=== PATIENT | male | born 1945 | race Caucasian/White ===

== ENCOUNTER 2017-10-08 12:59 | Emergency (ER) | payer MEDICARE, OTHER ==
[2017-10-08 13:15] VITALS: BP 141/88
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
--- NOTE | 2017-10-08 13:56 | CR ---
Left shoulder: Three views of the left shoulder were obtained. Comparison: No prior shoulder exam. Acromioclavicular joint shows mild joint space narrowing with mild inferior and superior spurring. Deformity from old healed clavicle fracture is seen. Glenohumeral joint appears within normal limits. No acute fracture or dislocation is seen. Impression: 1. Mild degenerative change within the acromioclavicular joint as noted above. 2. Old healed left clavicle fracture. Diagnostic code #2
== END 2017-10-08 14:04 | disposition home or self-care (01) ==
LOC: JD.ED 12:59
DX: M75.112 Incomplete rotator cuff tear or rupture of left shoulder, not specified as traumatic (principal); I10 Essential (primary) hypertension; E78.00 Pure hypercholesterolemia, unspecified; E11.9 Type 2 diabetes mellitus without complications; Z88.5 Allergy status to narcotic agent; Z88.8 Allergy status to other drugs, medicaments and biological substances; Z79.82 Long term (current) use of aspirin; Z79.899 Other long term (current) drug therapy
CPT/HCPCS: 73030-26-LT; 73030-LT; 99284

== ENCOUNTER 2020-01-21 11:06 | Emergency (ER) | payer MEDICARE, OTHER ==
[2020-01-21 11:24] VITALS: BP 171/80; PULSE 58
--- NOTE | 2020-01-21 11:31 | EDM.PDOC ---
ED HPI GENERAL MEDICAL PROBLEM - General Chief Complaint: Back Pain or Injury Stated Complaint: BACK PAIN Time Seen by Provider: 01/21/20 11:10 Source of Information: Reports: Patient History Limitations: Reports: No Limitations - History of Present Illness INITIAL COMMENTS - FREE TEXT/NARRATIVE: 74-year-old male presents to the ED for evaluation of injuries sustained from a fall 4 days ago at about 9:30 in the morning. He reports he was in [place] helping out a friend cutting down some trees on his on the top of a 12 foot ladder. The tree branch she was cutting on came back struck the ladder knocking it out from underneath his feet and he fell directly to the ground landing hard on his back. It certainly knocked the wind out of him. He states he was transiently confused as well as patients or other people indicated that he seemed to have trouble remembering things for period of time since that time he states he has been sharp as attack and drove himself back to [place] here. He is having increased pain in his lower thoracic spine particular at the thoracolumbar junction and throughout the lumbar spine. He states he can walk okay but he is walking slower than normal. He states he has no trouble getting in and out of the vehicle. Has to do it much slower than normal. He states he is in otherwise good health. Complaining of some rib pain throughout the mid and lower back posteriorly. It does hurt in his back when he takes a deep breath or coughs. Denies coughing up any blood. Denies any cervical neck pain. Onset: Sudden Onset Date: 01/17/20 Onset Time: 09:30 Duration: Day(s):, Getting Worse Location: Reports: Chest (Your ribs bilaterally), Back (Mid and lower back) Quality: Reports: Ache, Other (Pain is worse with certain movements such as bending forwards and coughing radiculopathy.) Severity: Moderate Improves with: Reports: Rest Worsens with: Reports: Movement Context: Denies: Activity (Getting out of the car is difficult and he walks much slower than normal due to back stiffness and soreness.), Exercise, Lifting , Sick Contact Associated Symptoms: Reports: No Other Symptoms, Chest Pain. Denies: Confusion , Cough, cough w sputum, Diaphoresis, Fever/Chills (To take a deep breath in his back at times), Headaches, Loss of Appetite, Malaise, Nausea/Vomiting, Rash , Seizure, Shortness of Breath, Syncope, Weakness Treatments CONTACT LENS ASSISTANT: Reports: Acetaminophen Lower Back Pain Score (Numeric/FACES): 8 - Related Data Allergies Allergy/AdvReac Type Severity Reaction Status Date / Time codeine Allergy Cannot Verified 01/21/20 11:35 Remember linagliptin Allergy Cannot Verified 01/21/20 11:35 Remember metformin Allergy Cannot Verified 01/21/20 11:35 Remember Home Meds: Home Meds Aspirin [Halfprin] 81 mg PO DAILY 08/06/15 [History] atorvaSTATin [Lipitor] 40 mg PO DAILY 08/06/15 [History] glipiZIDE [Glipizide] 20 mg PO DAILY 08/06/15 [History] Metoprolol Succinate 50 mg PO DAILY 10/08/17 [History] oxyCODONE HCl/Acetaminophen [Percocet 5-325 mg Tablet] 1 - 2 each PO Q4H PRN # 20 tablet 10/08/17 [Rx] Melatonin 1 tab PO BEDTIME 01/21/20 [History] oxyCODONE HCl/Acetaminophen [Percocet 5-325 mg Tablet] 1 - 2 each PO Q4H PRN # 20 tablet 01/21/20 [Rx] polyethylene glycoL 3350 [MiraLAX] 17 gm PO DAILY #1 canister 01/21/20 [Rx] Past Medical History Cardiovascular History: Reports: High Cholesterol, Hypertension Musculoskeletal History: Reports: Osteoarthritis (Mostly affecting his knees.) Endocrine/Metabolic History: Reports: Diabetes, Type II (Controlled with glipizide and diet.) - Past Surgical History Neurological Surgical History: Reports: Lumbar Spine Other Neurological Surgeries/Procedures: removed spur Musculoskeletal Surgical History: Reports: Knee Replacement, Shoulder Replacement Social & Family History - Caffeine Use Caffeine Use: Reports: Coffee - Living Situation & Occupation Living situation: Reports: with Family Occupation: Other ED ROS GENERAL - Review of Systems Review Of Systems: See Below Constitutional: Reports: Decreased Appetite. Denies: Fever, Chills, Malaise, Weakness, Fatigue, Weight Loss HEENT: Reports: Glasses Respiratory: Reports: Shortness of Breath. Denies: Wheezing, Pleuritic Chest Pain (Objective shortness of breath is deep breathing makes the back pain worse. ) Cardiovascular: Reports: No Symptoms Endocrine: Reports: Fatigue GI/Abdominal: Reports: Decreased Appetite. Denies: Abdominal Pain, Anorexia, Black Stool, Bloody Stool, Constipation, Diarrhea, Difficulty Swallowing, Distension, Flatus, Hematemesis, Hematochezia (Mildly decreased), Melena, Mucous in Stool, Stool Incontinence, Vomiting, Other : Reports: Frequency, Other (Curiously x2 or 3 on BPH) Musculoskeletal: Reports: Back Pain (Pain low back pain at times but much worse since falling 5 days ago), Joint Pain (His hips neck at times) Skin: Reports: No Symptoms ( or less at the thoracolumbar junction) Neurological: Reports: Other. Denies: Numbness, Paresthesia, Tingling Psychiatric: Reports: No Symptoms (Radiculopathy) Hematologic/Lymphatic: Reports: No Symptoms Immunologic: Reports: No Symptoms ED EXAM,LOWER BACK PAIN/INJURY - Physical Exam Exam: See Below Exam Limited By: No Limitations General Appearance: Alert, WD/WN, Mild Distress, Other (Very stoic fellow. Temperature is 36.5 heart rate was 58 in sinus respiratory is 20 BP 171/80 Socks is 98% on room air) Eye Exam: Bilateral Eye: Normal Inspection Throat/Mouth: Normal Inspection, Normal Lips, Normal Oropharynx, Other Head: Atraumatic (Dental or tongue injury.), Normocephalic, Other Neck: Normal Inspection, Supple, Non-Tender, Full Range of Motion, Other. No: Limited Range of Motion, Lymphadenopathy (L), Lymphadenopathy (R), Tender Lateral, Tender Midline, Thyromegaly Respiratory/Chest: No Respiratory Distress, Lungs Clear, Normal Breath Sounds, No Accessory Muscle Use, Other (Pain on firm compression of his ribs) Cardiovascular: Normal Peripheral Pulses, Regular Rate, Rhythm, No Edema, No Gallop, No Murmur ( or sternum.), No Rub GI/Abdominal: Normal Bowel Sounds, Soft, Non-Tender, No Organomegaly, No Mass, Pelvis Stable Back Exam: Decreased Range of Motion, Vertebral Tenderness. No: Full Range of Motion, CVA Tenderness (L), CVA Tenderness (R) Extremities: Normal Inspection, Normal Range of Motion, Non-Tender, Other (Is no evidence of contusions abrasions or limited mobility of his shoulders clavicles) Neurological: Alert, Normal Mood/Affect ( upper extremities or lower extremities. He can walk fine), Normal Dorsiflexion, CN II-XII Intact, Normal Plantar Flexion, Normal Gait, Other (Walks slowly with a slightly wide-based gait.) DTR - Lower Extremities: 1+: Ankle (R), Ankle (L), 2+: Knee (R), Knee (L) Psychiatric: Normal Affect, Normal Mood Skin Exam: Warm, Dry, Intact, Normal Color, No Rash Course - Vital Signs Last Recorded V/S: Last Vital Signs Temp 36.5 C 01/21/20 11:15 Pulse 58 L 01/21/20 11:15 Resp 20 01/21/20 11:15 BP 171/80 H 01/21/20 11:15 Pulse Ox 98 01/21/20 11:15 - Radiology Interpretation Free Text/Narrative:: 74-year-old male presents to the ED with complaints of mid back pain. This occurred secondary to a fall from a height of about 11 feet when he was up on a ladder cutting tree branches in [place] last Sunday, January 16. He states he fell flat on his back and knocked the wind out of him. He states he did not hit his head but was transiently confused until he got his breath back. Did drive himself back to [place] or to [place] 2 days ago. He is having increased back pain particular at the thoracolumbar junction area and is able to walk although he states he is walking much more slowly than normal and getting in and out of his vehicle much more slowly than normal. Examination reveals pain mostly in the lower thoracic and upper lumbar spine at the thoracolumbar junction. He had some pain also in his lower ribs particularly 8 9 and 10 adjacent to the spine. Therefore CT of the chest, CT thoracic spine CT lumbar spine will be done. Clinically has no other injuries. - Re-Assessments/Exams Free Text/Narrative Re-Assessment/Exam: 01/21/20 13:32 CT of the thoracic spine reveals slight anterior wedging of thoracic #4. No definite acute fracture line is evident. Moderately anterior wedging of T7 is also seen without definite acute fracture line. There is a compression deformity at T12 which shows evidence for a fracture line which is therefore acute. There is approximately 30% loss of the vertebral body height. No extension of the posterior elements is seen. Degenerative changes scattered throughout the apophyseal joints of the thoracic spine. No abnormal subluxation is seen. No bony central canal stenosis or bony neuroforaminal stenosis is noted. Scattered endplate spurring is noted. CT lumbar spine reveals disc space narrowing noted at L1-L2 with vacuum phenomena. Minimal disc space narrowing at L2-L3 and L3-L4 levels as well. Slight spinal listhesis by several millimeters L4-L5 due to severe degenerative apophyseal change. Lesser degenerative apophyseal changes seen throughout the other lumbar levels. No acute fractures seen within the lumbar spine. Degenerative changes noted within both SI joints. CT of the chest reveals mediastinum showing atherosclerotic change within the thoracic aorta and branch vessels. Mild coronary artery calcification is seen no mediastinal hematoma is seen no axillary adenopathy is seen no pericardial fluid is seen. Lungs show no pulmonary contusion. No acute parenchymal process is seen within either lung. No pleural effusions are seen. Previous right shoulder surgery is appreciated old healed right-sided rib fractures are noted. No acute rib fracture is identified with any degree of certainty. Several compression deformities are seen in the thoracic spine as mentioned in the CT of the thoracic spine. Discussed the findings with the patient. Of note he is a candidate for kyphoplasty and we discussed what seizure is all about. He shows some interest in this. 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 He is going to discuss the options with his family members and then get back with Dr. Carson about arranging consultation with Dr. Mason if this is his decision. Departure - Departure Time of Disposition: 13:02 Disposition: Home, Self-Care 01 Condition: Fair Clinical Impression: Vertebral compression fracture Qualifiers: Encounter type: initial encounter Thoracic vertebra fracture level: T2 - Discharge Information *PRESCRIPTION DRUG MONITORING PROGRAM REVIEWED*: Not Applicable *COPY OF PRESCRIPTION DRUG MONITORING REPORT IN PATIENT RASHAUN: Not Applicable Prescriptions: oxyCODONE HCl/Acetaminophen [Percocet 5-325 mg Tablet] 1 - 2 each PO Q4H PRN # 20 tablet PRN Reason: pain relief. polyethylene glycoL 3350 [MiraLAX] 17 gm PO DAILY #1 canister Instructions: Thoracic Spine Fracture, [id number] Referrals: Rusty Doyle [[employer] Deployment Consultant] - Forms: ED Department Discharge Additional Instructions: Evaluation in the emergency room today in regards to injuries to your mid and lower back sustained from a fall from a height of about 11 feet while cutting tree branches while in [place] last Sunday. Increasing pain particularly in the mid lower back at the thoracolumbar junction appreciated on examination without any contusions abrasions or bruises to the back appreciated on exam. No other injuries were identified on examination. CT of the chest revealed no broken ribs and no broken bones in the upper thoracic back. CT of the thoracic spine reveals a compression fracture of approximately 30% loss of height of vertebra #12 which we call T12. This is the lowest vertebra in the thoracic spine. There are [address] of the lumbar spine reveals degenerative changes throughout but no compression fractures or broken bones in the thoracic spine. We discussed I will leave it up to you. The options would be to have consultation with neurosurgeon in [facility] to discuss kyphoplasty which is a way of restoring the bone to normal height and filling it with a cement or acrylic to relieve pain. As you discussed with me you wish to discuss this with your family members and then you could set up an appointment with Dr. Carson to arrange this consultation. You would need an MRI of your pain prior to them contemplating any surgical procedures. In the meantime suggest using Aleve 2 tablets every 8 hours for pain and inflammation relief. MiraLAX powder 17 g or 1 scoop daily to prevent constipation. Percocet tabs 5/325 mg ideally 1 tablet every 4-6 hours as necessary for pain relief but may increase to 2 tablets if after an hour and a half of 1 tablet the pain is not well controlled. This is particularly important at bedtime as it is difficult to sleep with the broken back. He should avoid all lifting, pushing, carrying or bending forwards for the next 6 weeks to allow this bone to heal. Sepsis Event Note - Focused Exam Vital Signs: Vital Signs Temp Pulse Resp BP Pulse Ox 01/21/20 11:15 36.5 C 58 L 20 171/80 H 98 Date Exam was Performed: 01/21/20 Time Exam was Performed: 13:11
--- NOTE | 2020-01-21 12:48 | CT ---
CT lumbar spine Comparison: Prior MRI lumbar spine study of 10/24/16. Technique: Multiple axial sections were obtained through the lumbar spine. Reconstructed sagittal and coronal images were obtained. Findings: Disc space narrowing noted at L1-L2 with vacuum phenomena. Minimal disc space narrowing at L2-L3 and L3-L4. Slight spondylolisthesis by several millimeters L4-L5 due to severe degenerative apophyseal change. Lesser degenerative apophyseal change is seen throughout the other lumbar levels. No acute fracture is seen within the lumbar spine. Degenerative change is noted within the sacroiliac joints. Impression: 1. Degenerative change within the lumbar spine. 2. Nothing acute is appreciated within the lumbar spine. Diagnostic code #2 Study was dictated in MDT
--- NOTE | 2020-01-21 12:48 | CT ---
CT chest Technique: Multiple axial sections were obtained from above the lung apices inferiorly through the lung bases. Intravenous contrast not utilized. Comparison: No prior chest CT exam, prior chest x-ray of 08/06/15. Findings: Mediastinum shows atherosclerotic change within the thoracic aorta and branch vessels. Mild coronary artery calcification is seen. No mediastinal hematoma is seen. No axillary adenopathy is seen. No pericardial fluid is seen. Lungs show no pulmonary contusion. No acute parenchymal process is seen within either lung. No pleural effusions are seen. Previous right shoulder surgery is noted. Old healed right-sided rib fractures are noted. No acute rib fracture is identified. Several compression deformities are seen within the thoracic spine which will be described on thoracic spine exam. Impression: 1. Nothing acute is seen on CT study of the chest. Diagnostic code #2l, Study was dictated in MDT
--- NOTE | 2020-01-21 12:48 | CT ---
CT thoracic spine Technique: Multiple axial sections through the thoracic spine were obtained. Reconstructed sagittal and coronal images were obtained. Comparison: No prior thoracic spine imaging. Findings: Slight anterior wedging is noted of T4. No definite acute fracture line is seen. Moderate anterior wedge deformity at T7 is seen without definite acute fracture line. Compression deformity T12 is seen which shows evidence of for fracture line which is therefore acute. There is approximately 30% loss of vertebral body height. No extension of the posterior elements is seen. Degenerative change is scattered throughout the apophyseal joints of the thoracic spine. No abnormal subluxation is seen. No bony central canal stenosis or bony neural foraminal stenosis is seen. Scattered endplate spurring is noted. Impression: 1. Mild compression deformities of T4 and T7 which show no definite acute fracture line. 2. Acute appearing fracture within T12 with loss of vertebral body height by about 30%. 3. Degenerative change as noted above. Diagnostic code #3 Study was dictated in MDT
== END 2020-01-21 13:22 | disposition home or self-care (01) ==
LOC: JD.ED 11:06
DX: S22.029A Unspecified fracture of second thoracic vertebra, initial encounter for closed fracture (principal); I10 Essential (primary) hypertension; E78.00 Pure hypercholesterolemia, unspecified; M19.90 Unspecified osteoarthritis, unspecified site; E11.9 Type 2 diabetes mellitus without complications; Z88.5 Allergy status to narcotic agent; Z88.8 Allergy status to other drugs, medicaments and biological substances; Z79.82 Long term (current) use of aspirin; Z79.84 Long term (current) use of oral hypoglycemic drugs; Z79.899 Other long term (current) drug therapy; W11.XXXA Fall on and from ladder, initial encounter
CPT/HCPCS: 71250; 71250-26; 72128; 72128-26; 72131; 72131-26; 99283-25; 99284

== ENCOUNTER 2024-05-25 13:22 | Emergency (ER) | payer MEDICARE, OTHER ==
[2024-05-25 13:33] VITALS: PULSE 66
[2024-05-25] MEDS: Acetaminophen/oxyCODONE 325-5 MG Tab PO ONE (14:00)
[2024-05-25] MEDS: Metoclopramide 5 MG Tab PO ONE (14:00)
[2024-05-25 14:59] VITALS: BP 154/78
== END 2024-05-25 15:13 | disposition home or self-care (01) ==
LOC: JD.ED 13:22
DX: S22.080A Wedge compression fracture of T11-T12 vertebra, initial encounter for closed fracture (principal); M54.50 Low back pain, unspecified; I10 Essential (primary) hypertension; E78.00 Pure hypercholesterolemia, unspecified; E11.9 Type 2 diabetes mellitus without complications; Z79.4 Long term (current) use of insulin; Z79.899 Other long term (current) drug therapy; Z79.82 Long term (current) use of aspirin; Z79.84 Long term (current) use of oral hypoglycemic drugs; Z88.5 Allergy status to narcotic agent; Z88.8 Allergy status to other drugs, medicaments and biological substances; X58.XXXA Exposure to other specified factors, initial encounter
CPT/HCPCS: 72131; 99283; A9270; 99284

== ENCOUNTER 2025-08-30 08:25 | Emergency (ER) | payer MEDICARE, OTHER ==
[2025-08-30] MEDS: Fluorescein 1 MG Ophth Strip ONE (08:57)
[2025-08-30 09:19] VITALS: BP 158/69; PULSE 71
== END 2025-08-30 09:10 | disposition home or self-care (01) ==
LOC: JD.ED 08:25
DX: S05.01XA Injury of conjunctiva and corneal abrasion without foreign body, right eye, initial encounter (principal); I10 Essential (primary) hypertension; E78.00 Pure hypercholesterolemia, unspecified; E11.9 Type 2 diabetes mellitus without complications; Z88.5 Allergy status to narcotic agent; Z88.8 Allergy status to other drugs, medicaments and biological substances; Z79.4 Long term (current) use of insulin; Z79.82 Long term (current) use of aspirin; Z79.84 Long term (current) use of oral hypoglycemic drugs; Z79.899 Other long term (current) drug therapy; X58.XXXA Exposure to other specified factors, initial encounter
CPT/HCPCS: 99283

== ENCOUNTER 2025-09-24 07:00 | Day surgery (SDC) | payer MEDICARE, OTHER ==
[~2025-09-24 07:00] MED LIST: Pilocarpine 4% Ophth Soln 15 ML Bot EYELF SCH
[2025-09-24] MEDS: Polymyxin B/Trimethoprim 10 ML Bottle EYELF SCH (07:04)
[2025-09-24] MEDS: Tropicamide 1% Ophth Soln 3 ML Bottle EYELF SCH (07:12)
[2025-09-24 07:31] VITALS: BP 155/60; PULSE 75
[2025-09-24] MEDS: Tetracaine HCl/PF 0.5% 4 ML Bottle EYEBOTH SCH (08:00)
[2025-09-24] MEDS: Lidocaine 1% PF 2 ML SDV INJECT SCH (08:17)
[2025-09-24] MEDS: Cefuroxime 10 MG/ML SYRINGE EYELF SCH (08:28)
== END 2025-09-24 08:45 | disposition home or self-care (01) ==
LOC: JD.SDS 07:00
PROVIDERS: ATTEND Ophthalmology
DX: E11.36 Type 2 diabetes mellitus with diabetic cataract (principal); H25.813 Combined forms of age-related cataract, bilateral; H21.81 Floppy iris syndrome; H21.40 Pupillary membranes, unspecified eye; H40.013 Open angle with borderline findings, low risk, bilateral; H16.223 Keratoconjunctivitis sicca, not specified as Sjogren's, bilateral; H16.103 Unspecified superficial keratitis, bilateral; H02.831 Dermatochalasis of right upper eyelid; H02.834 Dermatochalasis of left upper eyelid; H57.813 Brow ptosis, bilateral; I10 Essential (primary) hypertension; E78.00 Pure hypercholesterolemia, unspecified; Z88.5 Allergy status to narcotic agent; Z88.8 Allergy status to other drugs, medicaments and biological substances; Z79.82 Long term (current) use of aspirin; Z79.84 Long term (current) use of oral hypoglycemic drugs; Z79.899 Other long term (current) drug therapy
CPT/HCPCS: A9270-GY; J0697; J3490